=== PATIENT | female | born 1995 | race Caucasian/White ===

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

== ENCOUNTER 2017-09-04 21:46 | Emergency (ER) | payer BC, OTHER ==
[~2017-09-04] VITALS: Ht 160 cm; Wt 61.2 kg
[2017-09-04] MEDS ORDERED: UNOBMED (21:57)
[2017-09-04 22:15] VITALS: BP 117/80
[2017-09-04] MEDS ORDERED: Ketorolac 60mg Inj IM ONE (22:15)
[2017-09-04 22:33] LABS: APPEARANCE,URINE CLEAR; BILIRUBIN, URINE NEGATIVE (NEGATIVE); COLOR,URINE PALE YELLOW; GLUCOSE, URINE (UA) NEGATIVE (NEGATIVE); KETONES,URINE NEGATIVE (NEGATIVE); LEUKOCYTE ESTERASE ,URINE 1+ (NEGATIVE); NITRITE,URINE NEGATIVE (NEGATIVE); PH,URINE 9 (4.5-8.0); PROTEIN,URINE 1+ (NEGATIVE); UROBILINOGEN,URINE NORMAL MG/DL (0.0-1.0)
[2017-09-04] MEDS ORDERED: IBUPROFEN600 MG ORAL (22:44)
--- NOTE | 2017-09-04 22:45 | Emergency Room Report ---
History of Present Illness General Chief Complaint: Back Pain-No Injury Source: Patient Present Illness HPI Is a 21-year-old female with no past medical history. She presents with chief complaint of upper back pain. Onset for last 2 days but no trauma. Worse with movement. No fever chills. No shortness of breath. Pain is 8 out of 10. Tylenol is not helping. Denies any other complaint. No heavy lifting. Allergies: Coded Allergies: No Known Allergies (Unverified , 06/05/16) Patient History Past Medical History: none, see triage record, old chart reviewed Past Surgical History: none Pertinent Family History: none Social History: Denies: smoking Last Menstrual Period: 08/05/17 Now: No : 0 Para: 0 Immunizations: other Reviewed Nursing Documentation: PMH: Agreed; PSxH: Agreed Nursing Documentation-PMH Past Medical History: No Stated History Hx Neurological Problems: No Review of Systems Eye: Denies: eye pain, blurred vision ENT: Denies: ear pain, nose congestion, throat swelling Respiratory: Denies: cough, shortness of breath Cardiovascular: Denies: chest pain, palpitations Gastrointestinal: Denies: abdominal pain, diarrhea, nausea, vomiting Musculoskeletal: Reports: back pain; Denies: joint pain Skin: Denies: rash Neurological: Denies: headache, numbness Endocrine: Denies: increased thirst, increased urine Hematologic/Lymphatic: Denies: easy bruising All Other Systems: negative except mentioned in HPI Physical Exam Vital Signs Date Time Temp Pulse Resp B/P (MAP) Pulse Ox O2 Delivery O2 Flow Rate FiO2 09/04/17 21:54 98.7 88 14 119/80 97 Room Air 98.8 vitals normal Sp02 EP Interpretation: reviewed, normal General Appearance: well appearing, no apparent distress, alert Head: normocephalic, atraumatic Eyes: bilateral eye PERRL, bilateral eye EOMI ENT: hearing grossly normal, normal pharynx Neck: full range of motion, supple, no meningismus Respiratory: chest non-tender, lungs clear, normal breath sounds Cardiovascular #1: regular rate, rhythm, no murmur Gastrointestinal: normal bowel sounds, non tender, no mass, no organomegaly, no bruit, non-distended Musculoskeletal: back normal, gait/station normal, normal range of motion Psychiatric: mood/affect normal Skin: warm/dry Medical Decision Making Diagnostic Impression: Primary Impression: Strain of thoracic region Qualified Codes: S29.019A - Strain of muscle and tendon of unspecified wall of thorax, initial encounter ER Course Patient presents with upper back pain. Reproducible with movement. She is on control but low risk for DVT/PE. Not tachypneic or tachycardic. Not hypoxic. Last Vital Signs Date Time Temp Pulse Resp B/P (MAP) Pulse Ox O2 Delivery O2 Flow Rate FiO2 09/04/17 22:27 98.7 09/04/17 22:15 71 16 117/80 98 Room Air Status: improved Disposition: HOME, SELF-CARE Condition: Stable Scripts Ibuprofen* (MOTRIN*) 600 Mg Tablet 600 MG ORAL THREE TIMES A DAY, #30 TAB 0 Refills Prov: TRAY PETE M.D. 09/04/17 Referrals: NON PHYSICIAN (PCP) Patient Instructions: Back Pain, Adult Additional Instructions: Follow-up with your doctor in 7 days. Return if symptom worsen. TRAY PETE M.D. Sep 04, 2017 22:45
[2017-09-04 22:50] VITALS: BP 117/80
== END 2017-09-04 22:50 | disposition home or self-care (01) ==
LOC: EMR 21:59
DX: S29.012A Strain of muscle and tendon of back wall of thorax, initial encounter (principal); X58.XXXA Exposure to other specified factors, initial encounter; Y92.9 Unspecified place or not applicable
CPT/HCPCS: 81003; 81025; 96372; 99283

== ENCOUNTER 2017-11-18 10:34 | Emergency (ER) | payer BC ==
[~2017-11-18] VITALS: Ht 160 cm; Wt 58.5 kg
[~2017-11-18 10:34] MED LIST changes: +UNOBMED
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
[2017-11-18 11:40] VITALS: BP_SYST 100; BP_SYST 104; BP_DIAS 66; BP_DIAS 69
== END 2017-11-18 11:40 | disposition home or self-care (01) ==
LOC: EMR 11:24
DX: L60.0 Ingrowing nail (principal); M79.675 Pain in left toe(s)
CPT/HCPCS: 99282

== ENCOUNTER 2018-05-17 21:31 | Emergency (ER) | payer SELFPAY ==
[~2018-05-17] VITALS: Ht 160 cm; Wt 58.1 kg
[2018-05-17] MEDS ORDERED: SPIRONOLACTONE100 MG ORAL (21:51)
[2018-05-17 22:00] VITALS: BP 120/76
--- NOTE | 2018-05-17 22:00 | NUR ---
ER Nurse Note: Pt came from home with mom c/o sudden acute onset of headache with bloody nose. Pt stated 8/10 generalized head pain, non radiating. Nose was not actively bleeding at bedside. Pt a&ox4, VSS, full strength in all extremites, pupils equal and reactive to light. Pt denies dizziness, weakness, no head trauma. ERMD at pt side; will continue to monitor.
[2018-05-17] MEDS ORDERED: IBUPROFEN600 MG ORAL (22:17)
[2018-05-17] MEDS ORDERED: PSEUDOEPHEDRINE60 MG PO (22:17)
[2018-05-17] MEDS ORDERED: CLARITIN10 MG ORAL (22:17)
--- NOTE | 2018-05-17 22:18 | Emergency Room Report ---
History of Present Illness General Chief Complaint: Headache Source: Patient Present Illness HPI Is a 22-year-old female with no past medical history. She presents with chief complaint of head pressure and headache along with nosebleed. The nosebleed been on and off for the last couple weeks. Usually when she wakes up. Mostly in the left side. No nausea no vomiting. Has pressure in her head. No focal deficit. Denies any other complaint. No nasal trauma no speaking. Allergies: Coded Allergies: No Known Allergies (Unverified , 06/05/16) Patient History Past Medical History: none, see triage record, old chart reviewed Past Surgical History: none Pertinent Family History: none Social History: Denies: smoking Last Menstrual Period: 04/16/18 Now: No Immunizations: other Reviewed Nursing Documentation: PMH: Agreed; PSxH: Agreed Nursing Documentation-PMH Past Medical History: No History, Except For Hx Neurological Problems: No Review of Systems Eye: Denies: eye pain, blurred vision ENT: Denies: ear pain, nose congestion, throat swelling Respiratory: Denies: cough, shortness of breath Cardiovascular: Denies: chest pain, palpitations Gastrointestinal: Denies: abdominal pain, diarrhea, nausea, vomiting Musculoskeletal: Denies: back pain, joint pain Skin: Denies: rash Neurological: Reports: headache; Denies: numbness Endocrine: Denies: increased thirst, increased urine Hematologic/Lymphatic: Denies: easy bruising All Other Systems: negative except mentioned in HPI Physical Exam Vital Signs Date Time Temp Pulse Resp B/P (MAP) Pulse Ox O2 Delivery O2 Flow Rate FiO2 05/17/18 21:47 98.2 75 18 120/76 96 Room Air vitals normal Sp02 EP Interpretation: reviewed, normal General Appearance: well appearing, no apparent distress, alert Head: normocephalic, atraumatic Eyes: bilateral eye PERRL, bilateral eye EOMI ENT: hearing grossly normal, normal pharynx, other - Left nares: Over the septum there is an area of scabbing. No active bleeding. Neck: full range of motion, supple, no meningismus Respiratory: chest non-tender, lungs clear, normal breath sounds Cardiovascular #1: regular rate, rhythm, no murmur Gastrointestinal: normal bowel sounds, non tender, no mass, no organomegaly, no bruit, non-distended Musculoskeletal: back normal, gait/station normal, normal range of motion Psychiatric: mood/affect normal Skin: warm/dry Medical Decision Making Diagnostic Impression: Primary Impression: Headache Qualified Codes: G44.209 - Tension-type headache, unspecified, not intractable Additional Impression: Anterior epistaxis ER Course Patient with headache. May be tension versus sinus headache. No evidence of any bleed, meningitis or neoplastic process. Nosebleed is mild. No active bleeding. May be secondary to allergies. CT/MRI/US Diagnostic Results CT/MRI/US Diagnostic Results : Imaging Test Ordered: CT head Impression negative per radiologist Last Vital Signs Date Time Temp Pulse Resp B/P (MAP) Pulse Ox O2 Delivery O2 Flow Rate FiO2 05/17/18 21:47 98.2 75 18 120/76 96 Room Air Status: improved Disposition: HOME, SELF-CARE Condition: Stable Scripts Ibuprofen* (MOTRIN*) 600 Mg Tablet 600 MG ORAL THREE TIMES A DAY, #30 TAB 0 Refills Prov: Tho Lord MD 05/17/18 Loratadine (CLARITIN) 10 Mg Tablet 10 MG ORAL DAILY, #30 TAB Prov: Tho Lord MD 05/17/18 Pseudoephedrine Hcl* (SUDAFED*) 60 Mg Tablet 60 MG PO Q6H, #30 TAB Prov: Tho Lord MD 05/17/18 Patient Instructions: Tension Headache Additional Instructions: Change of filter from your air-conditioner/furnace. Apply small dab of antibiotic ointment or Vaseline to both nares. Follow-up your doctor in 7 days. If continue with nosebleed, may need referral to see ENT. Return if worse. Tho Lord MD May 17, 2018 22:18
[2018-05-17 22:30] VITALS: BP 120/76
--- NOTE | 2018-05-17 22:30 | NUR ---
ER Nurse Note: Pt seen, treated, medically cleared for discharge by ERMD. Discharge instructions and prescriptions given with repeat verbalizaion by pt. Instructed pt to follow up with primary care physcian within one week. Pt a&ox4, VSS, no signs of distress. ID band removed. Pt left with all belongings, steady gait via own transporation.
--- NOTE | 2018-05-18 08:50 | Diagnostic Imaging Report ---
Indication: Reason For Exam: PAIN Technique: Continuous helical CT scanning of the head was performed without intravenous contrast material. Axial and coronal 5 mm sections were generated. Radiation dose was minimized using automated exposure control Dose: Total Dose Length Product - DLP 1245.[address] Dose Index - CTDIvol(s) 70.38 mGy. Comparison: Findings: The ventricular system is normal in size and configuration. There is no shift of midline structures. No abnormal extra-axial fluid collections are noted. There is no evidence of intracerebral bleeding. No other abnormal high or low density areas are noted within the brain. The calvarium is intact. Visualized orbits and sinuses are unremarkable. The mastoids are clear. Impression: Normal CT scan of the head without contrast material. This agrees with the preliminary interpretation provided overnight by [facility] service. The CT scanner at [facility] is accredited by the [employer] and the scans are performed using protocols designed to limit radiation exposure to as low as reasonably achievable to attain images of sufficient resolution adequate for diagnostic evaluation.
== END 2018-05-17 22:30 | disposition home or self-care (01) ==
LOC: EMR 21:58
DX: G44.209 Tension-type headache, unspecified, not intractable (principal); R07.0 Pain in throat
CPT/HCPCS: 70450; 99284